=== PATIENT | female | born 1965 | race American Indian/Alaskan Native ===

== ENCOUNTER 2021-05-17 09:12 | Emergency (ER) | payer SELFPAY ==
[2021-05-17 09:29] VITALS: BP 141/86
--- NOTE | 2021-05-17 09:51 | Emergency Department Report ---
- General Chief complaint: Skin/Abscess/Foreign Body Stated complaint: ABSCESS Time Seen by Provider: 05/17/21 09:38 Source: patient Mode of arrival: Ambulatory Limitations: No Limitations - History of Present Illness Initial comments: 55-year-old -[place] female presents to the emergency room for 1 week history of right index swelling and pain. Patient states that she had messed with it on Thursday because the pain was so intense. Patient reports now the pain is not as bad but still has swelling and tenderness. She states that she has no known drug allergies currently takes no meds on a daily basis and has a history of diabetes type 2 that is managed by diet and exercise. Patient currently does not have a primary care provider. Patient denies any trauma to her finger. MD complaint: abscess/boil Onset/Timin -: week(s) Tetanus Up to Date: yes Location: RUE (Index finger), R hand Severity scale (0 -10): 6 Quality: other (Throbbing) Consistency: intermittent Worsens with: palpation Context: none Associated symptoms: denies other symptoms - Related Data Previous Rx's Medication Instructions Recorded Last Taken Type Naproxen 500 mg PO BID PRN 7 Days #14 tablet 05/17/21 Unknown Rx cephALEXin [Keflex] 500 mg PO Q8HR 7 Days #21 cap 05/17/21 Unknown Rx Allergies Allergy/AdvReac Type Severity Reaction Status Date / Time No Known Allergies Allergy Unverified 05/17/21 09:49 Abscess Boil HPI - [facility] Chief Complaint: Skin/Abscess/Foreign Body Stated Complaint: ABSCESS Time Seen by Provider: 05/17/21 09:38 Home Medications: Previous Rx's Medication Instructions Recorded Last Taken Type Naproxen 500 mg PO BID PRN 7 Days #14 tablet 05/17/21 Unknown Rx cephALEXin [Keflex] 500 mg PO Q8HR 7 Days #21 cap 05/17/21 Unknown Rx Allergies/Adverse Reactions: Allergies Allergy/AdvReac Type Severity Reaction Status Date / Time No Known Allergies Allergy Unverified 05/17/21 09:49 ED Review of Systems ROS: Stated complaint: ABSCESS Other details as noted in HPI ED Past Medical Hx - Medications Home Medications: Home Medications Medication Instructions Recorded Confirmed Last Taken Type Naproxen 500 mg PO BID PRN 7 Days #14 tablet 05/17/21 Unknown Rx cephALEXin [Keflex] 500 mg PO Q8HR 7 Days #21 cap 05/17/21 Unknown Rx ED Physical Exam - General Limitations: No Limitations General appearance: alert, in no apparent distress - Head Head exam: Present: atraumatic, normocephalic - ENT ENT exam: Present: normal exam, normal external ear exam - Neck Neck exam: Present: normal inspection, full ROM - Respiratory Respiratory exam: Absent: respiratory distress, accessory muscle use - Cardiovascular Cardiovascular Exam: Present: regular rate - Back Exam Back exam: Present: normal inspection, full ROM - Neurological Exam Neurological exam: Present: alert, oriented X3, normal gait - Psychiatric Psychiatric exam: Present: normal affect, normal mood - Expanded Skin Exam Expanded Type of lesion: Present: abscess Distribution of rash: RUE (Distal first finger) Description of rash: Present: tenderness, swelling ED Course Vital Signs 05/17/21 09:26 Temperature 98.2 F Pulse Rate 91 H Respiratory 18 Rate Blood Pressure 141/86 [Right] O2 Sat by Pulse 98 Oximetry ED Medical Decision Making - Medical Decision Making 55-year-old -[place] female presents to the emergency room for 1 week history of right index swelling and pain. Patient states that she had messed with it on Thursday because the pain was so intense. Patient reports now the pain is not as bad but still has swelling and tenderness. She states that she has no known drug allergies currently takes no meds on a daily basis and has a history of diabetes type 2 that is managed by diet and exercise. Patient currently does not have a primary care provider. Patient denies any trauma to her finger. Patient be placed in a splint antibiotics for Felon. Pain medication and a referral to a primary care provider. Critical care attestation.: If time is entered above; I have spent that time in minutes in the direct care of this critically ill patient, excluding procedure time. ED Disposition Clinical Impression: Felon of finger of right hand Disposition: HOME / SELF CARE / HOMELESS Is pt being admited?: No Does the pt Need Aspirin: No Condition: Stable Instructions: Cellulitis, Adult, [id number] Additional Instructions: Complete antibiotics as prescribed. Pain medication as needed. Be sure to increase your water intake while taking medication. Follow-up with your primary care provider I have listed 1 below for your convenience. Prescriptions: cephALEXin [Keflex] 500 mg PO Q8HR 7 Days #21 cap Naproxen 500 mg PO BID PRN 7 Days #14 tablet PRN Reason: Pain , Severe (7-10) Referrals: DANNY CAMARA MD [Staff Physician] - 3-5 Days Forms: Work/School Release Form(ED) Time of Disposition: 09:52
== END 2021-05-17 10:27 | disposition home or self-care (01) ==
LOC: ED 09:12
DX: L03.011 Cellulitis of right finger (principal); Z79.899 Other long term (current) drug therapy
CPT/HCPCS: 99282